=== PATIENT | female | born 1995 | race Caucasian/White ===

== ENCOUNTER 2016-11-29 10:36 | Emergency (ER) | payer MEDICAID ==
[2016-11-29 10:54] VITALS: BP 114/64
--- NOTE | 2016-11-29 11:36 | ERNOTE ---
Medical Problem HPI - Narrative Date of Service: 11/29/16 - General Chief Complaint: General Assessment Time Seen by Provider: 11/29/16 11:10 Source: patient Exam Limitations: no limitations - Immun/Allergies/Home Medications Immunizations: IMMUNIZATION HX Immunizations Up to Date Yes History of Influenza Vaccine No Allergies/Adverse Reactions: Allergies No Known Allergies Allergy (Verified 11/29/16 10:53) Home Medications: HOME MEDICATIONS Gabapentin 300 mg PO TID 09/15/16 [Last Taken Unknown] Ibuprofen [Motrin] 600 mg PO Q6H PRN #40 tab 09/15/16 [Last Taken Unknown] Quetiapine Fumarate [Seroquel] 200 mg PO HS 09/15/16 [Last Taken Unknown] Ranitidine HCl [Zantac] 150 mg PO BID #60 tab 11/29/16 [Last Taken Unknown] - History of Present History Narrative: Pt. comes in with c/o chronic pain in her hips and low back as well as anxiety and bipolar depression that keeps her from sleeping and makes it difficult to get things done during the day. Pt. also has pain in her stomach that radiates to her chest and throat and she states that she has acid that she spits up in her throat. Pt. denies any palpitations, fevers, NVD, recent illness, but states that she has been between housing and is becoming stable but is out of her Seroquel and gabapentin. Pt. has an appointment with Dr Duncan on the 25 of January. Review of Systems - Review of Systems Constitutional: Present: fatigue, malaise. Absent: recent illness, fever, chills, weakness EYE: Present: no symptoms reported ENT: Present: no symptoms reported Respiratory: Present: no symptoms reported Cardiology: Present: chest pain. Absent: palpitations, edema Gastrointestinal/Abdominal: Present: abdominal pain - Upper epigastric, other - gerd. Absent: nausea, vomiting, diarrhea Genitourinary: Present: no symptoms reported Musculoskeletal: Present: no symptoms reported. Absent: back pain, joint pain Skin: Present: no symptoms reported. Absent: rash, change in color Neurological: Present: no symptoms reported All Other Systems: All systems neg except as marked - Patient's Past Medical History Patient History - Medical: Anxiety, Bipolar, Chronic Pain, Depression, Fibromyalgia Patient History - Cardiac/Respiratory: No pertinent hx Patient History - Cancer: No Hx of Cancer Patient History - Surgical Procedures: Other - Social History Living Situations: home Smoking Status: Former smoker Have you smoked in the past 12 months: Yes Alcohol Use: occasionally Drug Use: marijuana, meth Physical Exam - Physical Exam General Appearance: Present: wd/wn, alert, no apparent distress Eye Exam: Normal inspection: bilateral, PERRL: bilateral, EOMI: bilateral Ears, Nose, Throat: Present: normal ENT inspection, hearing grossly normal, pharyngeal erythema - mild post Neck: Present: normal inspection, nontender. Absent: lymphadenopathy (R), lymphadenopathy (L) Respiratory: Present: no respiratory distress, normal breath sounds, no accessory muscle use, chest nontender, lungs clear Cardiovascular/Chest: Present: regular rate, rhythm, no murmur, normal peripheral pulses Gastrointestinal/Abdominal: Present: normal bowel sounds, nontender, nondistended, soft, no organomegaly Back Exam: Present: normal inspection, normal range of motion, no CVA tenderness , no vertebral tenderness Extremity Exam: Present: normal inspection, non-tender, no edema, normal range of motion Neurological Exam: Present: alert, oriented, no motor/sensory deficits, other - anxious Skin Exam: Present: normal color, warm/dry. Absent: pallor, skin rash ED Progress - Date and Time Seen: Date and Time: 11/29/16 12:30 Pt. negative for any cardiac etiology of pain feel that this is likely GERD and will start pt. on H2 [place]. Also am uncomfortable prescribing Seroquel and Gabapentin without follow up available until January as verified by Dr Natalya Aparicio's borderer. Will have case management keep attempting to get appointment with Dr Bacon as I feel pt. needs close psychiatric attention for medication prescribing. 11/29/16 12:38 Pt. is not in acute distress at this time and feel that pt. is having some increased symptoms due to recent stresses. Medication withdraw, and recently quitting smoking. Will not restart psychiatric medications due to high risk of psychotic event from medications and no follow up. - Results and Orders Patient's Lab Results:: I have reviewed the patient's lab results. - Vital Signs Patient's Vital Signs:: I have reviewed the patient's vital signs. Vital Signs: Vital Signs 11/29/16 10:46 Temperature 36 C L Pulse Rate 93 Respiratory 14 Rate Blood Pressure 114/64 O2 Sat by Pulse 100 Oximetry - EKG EKG: NSR EKG read: Interp. by me - X-Ray X-Ray #1 X-Ray: chest Interpretation: Reviewed by me X-ray Comments: Mild bronchial wall prominence. - Progress/Reassessment Chief Complaint: General Assessment Departure - Departure Clinical Impression: Bipolar 1 disorder GERD (gastroesophageal reflux disease) Qualifiers: Esophagitis presence: with esophagitis Qualified Code(s): K21.0 - Gastro- esophageal reflux disease with esophagitis Chronic pain Qualifiers: Chronic pain type: other chronic pain Qualified Code(s): G89.29 - Other chronic pain Disposition: Home self-care Condition: Good Instructions: Indigestion, [id number], Bipolar Disorder, Chronic Pain Additional Instructions: Please follow up with Dr Ethan aparicio as scheduled and follow up with psychiatry, nurse will call you with appointment. Referrals: Devante Ramirez MD [Primary Care Provider] - Prescriptions: Ranitidine HCl [Zantac] 150 mg PO BID #60 tab
[2016-11-29 11:44] LABS: Hematocrit 42.3 % (37.0-47.0); Hemoglobin 14.4 gm/dL (12.5-16.0); Mean Cell Volume 89.8 fl (78-100); Mean Corpuscular Hemoglobin 30.6 pg (27-31); Mean Platelet Volume 10.3 fl (6.0-9.5); Neutrophil # 6.3 K/mm3 (1.3-6.0); Neutrophil % 67.2 % (42-75.0); Platelet Count 167 K/mm3 (150-450); Red Blood Count 4.71 M/mm3 (4.2-5.4); Red Cell Distribution Width 12.2 % (11.5-14.0); White Blood Count 9.4 K/mm3 (4.0-10.5)
[2016-11-29 11:56] LABS: Urine Bilirubin Negative (NEGATIVE); Urine Blood Negative /ul (NEGATIVE); Urine Ketone Negative (NEGATIVE); Urine Nitrite Negative (NEGATIVE); Urine Protein Negative (NEGATIVE); Urine Urobilinogen Normal (NORMAL)
[2016-11-29 12:03] LABS: Urine Appearance Clear; Urine Bacteria TRACE; Urine Color Yellow; Urine RBC None Seen /hpf (0-5)
[2016-11-29 12:07] LABS: Albumin * 4.2 gm/dl (3.4-5.0); Anion Gap 14.2 mmol/L (6.8-13.8); BUN/Creatinine Ratio 23.3 (9.0-21.6); Bilirubin, Total 0.3 mg/dL (0.0-1.1); Ca. Corrected For Albumin 8.9 mg/dL (8.4-10.2); Calcium * 9.4 mg/dL (7.9-10.9); Carbon Dioxide 26.5 mmol/L (24-32.6); Potassium 3.7 mmol/L (3.4-4.6); TSH * 0.81 uIU/mL (0.358-3.74); Total Protein 7.7 gm/dL (6.2-8.2)
[2016-11-29 12:10] LABS: Cocaine Ur Negative (NEGATIVE); Urine Barbiturate Negative (NEGATIVE); Urine Benzodiazepines Negative (NEGATIVE); Urine Opiates Negative (NEGATIVE); Urine PCP Negative (NEGATIVE); Urine THC Positive (NEGATIVE)
== END 2016-11-29 12:51 | disposition home or self-care (01) ==
LOC: ER 10:36
DX: K21.0 Gastro-esophageal reflux disease with esophagitis (principal); G89.29 Other chronic pain; F31.9 Bipolar disorder, unspecified; Z87.891 Personal history of nicotine dependence; M25.552 Pain in left hip; M25.551 Pain in right hip; M54.5 Low back pain
CPT/HCPCS: 36415; 71020; 80053; 81001; 84443; 84703; 85025; 87086; 93005; 99284; G0479

== ENCOUNTER 2017-07-02 14:16 | Emergency (ER) | payer MEDICAID, OTHER ==
[2017-07-02 14:27] VITALS: BP 112/78
--- OUTSIDE RECORDS SUMMARY | 2017-07-02 14:42 | XMS REPORT | Clinical Summary ---
:1995 Author Organization [facility] Address [place] [address] Care Team Providers Name Role Phone Unavailable Primary Care Provider Unavailable Source Comments This disclosure is being made pursuant to the [employer] program and maynot contain all information available regarding this patient.[facility] Allergies Not on File Current Medications Be aware that medications may not be up to date as of this document. Alwaysverify current medications with the patient. Prescription Sig. Disp. Refills Start Date End Date Status oxyCODONE HCl ER Take 30 mg by Active (OXYCONTIN) 30 MG T12A 12 mouth every 8 hr tablet (eight) hours. HYDROcodone-acetaminophen Take 2 tablets by Active (NORCO) 7.5-325 MG per mouth every 4 tablet (four) hours as needed for Pain. vitamin D, Ergocalciferol, Take 50,000 Units Active 80937 UNITS capsule by mouth once a week. aspirin 325 MG tablet Take 325 mg by Active mouth daily. calcium carbonate (TUMS) Chew 1 tablet by Active 500 MG chewable tablet mouth daily. docusate sodium (COLACE) Take 100 mg by Active 100 MG capsule mouth 2 (two) times daily. gabapentin (NEURONTIN) 400 Take 400 mg by Active MG capsule mouth 3 (three) times daily. potassium chloride SA Take 20 mEq by Active (K-DUR,KLOR-CON) 20 MEQ mouth daily. tablet methocarbamol (ROBAXIN) Take 500 mg by Active 500 MG tablet mouth 4 (four) times daily. polyethylene glycol Take 17 g by mouth Active (GLYCOLAX) packet daily. venlafaxine HCl Take 150 mg by Active (EFFEXOR-XR) 150 MG 24 hr mouth daily. capsule mirtazapine (REMERON) 30 Take 30 mg by Active MG tablet mouth nightly. cyclobenzaprine (FLEXERIL) Take 10 mg by Active 10 MG tablet mouth 3 (three) times daily as needed for Muscle spasms. acetaminophen (TYLENOL) Take 650 mg by Active 325 MG tablet mouth every 6 (six) hours as needed for Pain. bisacodyl (DULCOLAX) [address] 10 mg Active suppository rectally daily. magnesium hydroxide (MILK Take by mouth Active OF MAGNESIA) 400 MG/5ML daily as needed suspension for Constipation. ALPRAZolam (XANAX) 0.25 MG Take 0.25 mg by Active tablet mouth nightly as needed for Sleep. LORazepam (ATIVAN) 0.5 MG Take 0.5 mg by Active tablet mouth every 6 (six) hours as needed for Anxiety. ondansetron (ZOFRAN) 4 MG Take 4 mg by mouth Active tablet every 8 (eight) hours as needed for Nausea. enoxaparin sodium Inject 40 mg into Active (LOVENOX) 40 MG/0.4ML SOLN the skin daily. methylphenidate (CONCERTA) Take 18 mg by Active 18 MG CR tablet mouth every morning. Active Problems Not on file Social History Tobacco Use Types Packs/Day Years Used Date Never Assessed Sex Assigned at Date Recorded Not on file Last Filed Vital Signs Not on file Plan of Treatment Health Maintenance Due Date Last Done Comments HPV Vaccine ([id number],M: 9-22) (1 of 3 - Female 3 Dose 2004 Series) CHLAMYDIA SCREENING 2009 Tetanus/Pertussis (1 - Tdap) 2012 Pap Smear 2014 INFLUENZA IMMUNIZATION (#1) 2016 Results Not on filefrom Last 3 Months
--- NOTE | 2017-07-02 14:51 | ERNOTE ---
ER Female HPI Date of Service: 07/02/17 Stated Complaint: COLD Presenting Symptoms: vaginal bleeding Time Seen by Provider: 07/02/17 14:29 Source: patient Exam Limitations: no limitations Immunizations: IMMUNIZATION HX Immunizations Up to Date Yes History of Influenza Vaccine No Allergies/Adverse Reactions: Allergies No Known Allergies Allergy (Verified 07/02/17 14:27) Home Medications: HOME MEDICATIONS NK [No Home Medication] 07/02/17 [Last Taken Unknown] - History of Present Illness Narrative: Patient presents to the emergency room for irregular vaginal bleeding and states that she's had intermittent vaginal bleeding for the last month. She states that while she was in [place] she had a positive test at one facility and they transferred her she states that she had a negative test at that hospital. Patient states that she was treated for UTI at that hospital but did not complete her antibiotics. c/o pelvic pressure. Patient also states that she's had a cough for 2 days and a headache. The patient states she smokes a pack of cigarettes a day. Patient states she has not taken medication for either her headache or her cough. Patient states she does not have an [employer] to follow up with because she just moved back here from [place]. When patient asked about her drug history she states that she only smokes marijuana, but she did tell the triage nurse that she has been purchasing prescription drugs from people off the street. Patient states that she thinks she has had a fever on and off but does not have a thermometer at home. Date (Duration): 07/02/17 Timing: Present: intermittent Quality: Present: mild Onset Location: Present: suprapubic, groin. Absent: RLQ, LLQ, periumbilical, right flank, left flank, vaginal, urethral Radiation: Present: none Activities at Onset: Present: none Prior Abdominal Problems: Present: similar symptoms Sexual [place] History: Present: single partner Associated Symptoms: Present: abdominal pain. Absent: loss of bladder control, low back pain Prior Treatment: Present: treated by physician Review of Systems - Review of Systems Constitutional: Present: See HPI EYE: Present: no symptoms reported ENT: Present: no symptoms reported Respiratory: Present: See HPI, cough. Absent: shortness of breath, orthopnea, wheezing, stridor Cardiology: Present: no symptoms reported Gastrointestinal/Abdominal: Present: no symptoms reported Genitourinary: Present: See HPI, dysuria, hematuria, discharge, other - pelvic pressure Musculoskeletal: Present: no symptoms reported Skin: Present: no symptoms reported Neurological: Present: no symptoms reported Endocrine: Present: no symptoms reported Hematologic/Lymphatic: Present: no symptoms reported Psych: Present: no symptoms reported All Other Systems: All systems neg except as marked - Patient's Past Medical History Patient History - Medical: Anxiety, Bipolar, Chronic Pain, Depression, Fibromyalgia Patient History - Cardiac/Respiratory: No pertinent hx Patient History - Cancer: No Hx of Cancer Patient History - Surgical Procedures: Other Patient History - Other: None LMP (females 10-50): this week LMP (Calendar): 09/13/16 - Family History Family History:: no familial bleeding tendencies, no family history of clotting disorders - Social History Living Situations: home Psych History: No pertinent hx Smoking Status: Current every day smoker Have you smoked in the past 12 months: Yes Alcohol Use: occasionally Drug Use: marijuana, meth - Immunizations Immunizations Up to Date: Yes History of Influenza Vaccine: No Physical Exam - Physical Exam General Appearance: Present: wd/wn, alert, no apparent distress Head Exam: Present: normal inspection, no evidence of injury Eye Exam: Normal inspection: bilateral, PERRL: bilateral, EOMI: bilateral Ears, Nose, Throat: Present: normal ENT inspection, normal pharynx Neck: Present: normal inspection, nontender, supple, full range of motion. Absent: lymphadenopathy (R), lymphadenopathy (L) Respiratory: Present: no respiratory distress, normal breath sounds, no accessory muscle use, chest nontender, lungs clear Cardiovascular/Chest: Present: regular rate, rhythm, no murmur, normal peripheral pulses Gastrointestinal/Abdominal: Present: normal bowel sounds, nontender, nondistended, soft, no organomegaly. Absent: distended, McBurney sign, Obturator sign, Fisher sign, Psoas sign Back Exam: Present: normal inspection, normal range of motion, no CVA tenderness , no vertebral tenderness Extremity Exam: Present: normal inspection, non-tender, normal range of motion, no edema Neurological Exam: Present: alert, oriented, normal mood/affect, no motor/ sensory deficits Skin Exam: Present: normal color, warm/dry Lymphatic Exam: Present: no adenopathy Pelvic Exam: Present: active bleeding, discharge, cervical motion tendernes. Absent: lesions, tender adnexa, tender uterus ED Progress - Results and Orders Patient's Lab Results:: I have reviewed the patient's lab results. Results and Orders: positive UTI, - Vital Signs Patient's Vital Signs:: I have reviewed the patient's vital signs. Vital Signs: Vital Signs 07/02/17 14:22 Temperature 36.8 C Pulse Rate 101 H Respiratory 16 Rate Blood Pressure 112/78 O2 Sat by Pulse 100 Oximetry - Progress/Reassessment Chief Complaint: Genitourinary Problem Progress:: Improved Plan - Plan Plan: Patient was given a list of [employer] and primary care providers for her to follow- up with while she is here. Patient states that she will follow-up with them. Her boyfriend is aware of her STD testing and he states that they had not had intercourse since she returned from [place]. I advised him to get STD testing studies, hes going to wait until her test return with positive results. Departure Clinical Impression: STD (female) UTI (urinary tract infection) Qualifiers: Urinary tract infection type: site unspecified Hematuria presence: with hematuria Qualified Code(s): N39.0 - Urinary tract infection, site not specified ; R31.9 - Hematuria, unspecified - Departure Disposition: Home Follow Up Needed Condition: Stable Instructions: Urinary Tract Infection, Adult, [id number], Sexually Transmitted Disease, [id number] Additional Instructions: Continue any previous home medications. Follow-up with primary care provider in the next 2-3 days and [employer] in the next 2-3 days. You been given a list of physicians to choose from. Return to emergency room if symptoms return or persist. I would advise you to by thermometer and monitor temperature for the next few days. Drink plenty of fluids and eat a well-balanced diet.
[2017-07-02] MEDS ORDERED: AZITHROMYCIN 250 MG TABLET PO ONE (15:09)
[2017-07-02 15:10] LABS: Cocaine Ur Negative (NEGATIVE); Urine Appearance Cloudy; Urine Barbiturate Negative (NEGATIVE); Urine Benzodiazepines Negative (NEGATIVE); Urine Bilirubin Negative (NEGATIVE); Urine Blood 250 /ul (NEGATIVE); Urine Color Yellow; Urine Ketone Negative (NEGATIVE); Urine Nitrite Negative (NEGATIVE); Urine Opiates Negative (NEGATIVE); Urine PCP Negative (NEGATIVE); Urine Protein Negative (NEGATIVE); Urine Urobilinogen Normal (NORMAL)
[2017-07-02 15:11] LABS: Urine Bacteria 3+; Urine WBC >50 /hpf (0-5)
[2017-07-02] MEDS ORDERED: metroNIDAZOLE 500 MG TABLET PO ONE (15:11)
[2017-07-02] MEDS ORDERED: metroNIDAZOLE 500 MG TABLET ONE (15:15)
[2017-07-02] MEDS ORDERED: AZITHROMYCIN 250 MG TABLET ONE (15:15)
[2017-07-02 15:20] LABS: Urine THC Positive (NEGATIVE)
[2017-07-02] MEDS ORDERED: ONDANSETRON 4 MG TAB.RAPDIS PO ONE (15:21)
[2017-07-02] MEDS ORDERED: ONDANSETRON 4 MG TAB.RAPDIS ONE (15:28)
== END 2017-07-02 15:46 | disposition home or self-care (01) ==
LOC: ER 14:16
DX: A64 Unspecified sexually transmitted disease (principal); N39.0 Urinary tract infection, site not specified; F17.200 Nicotine dependence, unspecified, uncomplicated